=== PATIENT | female | born 1990 | race Caucasian/White ===

== ENCOUNTER 2017-10-25 16:04 | Emergency (ER) | payer MEDICAID ==
[~2017-10-25] VITALS: Ht 160 cm; Wt 71.7 kg
[2017-10-25 16:13] VITALS: Ht 160 cm; Wt 71.7 kg
[2017-10-25 17:41] VITALS: BP 125/73
== END 2017-10-25 17:41 | disposition home or self-care (01) ==
LOC: ED 16:04
DX: S93.401A Sprain of unspecified ligament of right ankle, initial encounter (principal); W01.0XXA Fall on same level from slipping, tripping and stumbling without subsequent striking against object, initial encounter; Y93.89 Activity, other specified; Y92.89 Other specified places as the place of occurrence of the external cause; Y99.8 Other external cause status
CPT/HCPCS: Q0092